=== PATIENT | male | born 1975 | race Caucasian/White ===

== ENCOUNTER 2016-09-24 08:44 | Emergency (ER) | payer MEDICARE, MEDICAID ==
[~2016-09-24] VITALS: Ht 180.3 cm; Wt 126.5 kg
[~2016-09-24 08:44] MED LIST: HYDR-3989 PO
[2016-09-24 08:45] VITALS: Ht 180.3 cm; Wt 126.5 kg
--- OUTSIDE RECORDS SUMMARY | 2016-09-24 08:48 | XMS REPORT ---
Author Author Albert Ferrer Organization [employer] Address Unknown Phone Unavailable Care Team Providers Care Straightening Machine Operator Name Role Phone Albert Ferrer CP Unavailable Allergies No Known Allergies Problems Problem Type Condition Code Onset Dates Condition Status Problem Migraine headaches 346.90 Active Problem Other specified idiopathic peripheral neuropathy 356.8 Active Problem Other anxiety states 300.09 Active Problem Vision impairment, both eyes, impairment level not further specified 369.20 Active Medications No Known Medications Results No Known Results Summary Purpose eClinicalWorks Submission
--- OUTSIDE RECORDS SUMMARY | 2016-09-24 08:49 | XMS REPORT ---
Author Author Gretchen Ruiz Organization [employer] Address Unknown Phone Unavailable Care Team Providers Care Fence Post Driver Name Role Phone Gretchen Ruiz CP Unavailable Allergies, Adverse Reactions, Alerts Substance Reaction Event Type N.K.D.A. Info Not Available Non Drug Allergy Problems Problem Type Condition ICD-9 Code Onset Dates Condition Status Assessment Screening for diabetes mellitus V77.1 Active Assessment Screening for lipoid disorders V77.91 Active Assessment Macular degeneration (senile) of retina, unspecified 362.50 Active Assessment Screening examination for venereal disease V74.5 Active Medications Medication Code System Code Instructions Start Date End Date Status Dosage Tylenol [facility] [address]-02 325 MG Orally every 6 hrs 1 tablet as needed Procedures Procedure Coding System Code Date OFFICE VISIT, OIL DISTRIBUTOR TENDER-LOW COMPLEXITY (20 MIN.) CPT-4 19420 December 16, 2014 Vital Signs Date/Time: December 16, 2014 Height 68.5 in Weight 277.8 lbs Temperature 98.4 F Blood Pressure Diastolic 84 mm Hg Blood Pressure Systolic 118 mm Hg Cardiac Monitoring Heart Rate 78 /min BMI 41.62 Index Respiratory Rate 16 /min Results No Known Results Summary Purpose eClinicalWorks Submission
--- OUTSIDE RECORDS SUMMARY | 2016-09-24 08:49 | XMS REPORT ---
Author Author Albert Ferrer Organization [employer] Address Unknown Phone Unavailable Care Team Providers Care Certified Teacher Assistant Name Role Phone Albert Ferrer CP Unavailable Allergies No Known Allergies Problems Problem Type Condition ICD-9 Code Onset Dates Condition Status Problem Other specified idiopathic peripheral neuropathy 356.8 Active Problem Vision impairment, both eyes, impairment level not further specified 369.20 Active Problem Migraine headaches 346.90 Active Medications Medication Code System Code Instructions Start Date End Date Status Dosage Folic Acid [facility] [address]-80 1 MG Orally Once a day January 12, 2015 Jul 11, 2015 1 tablet Results No Known Results Summary Purpose eClinicalWorks Submission
--- OUTSIDE RECORDS SUMMARY | 2016-09-24 08:49 | XMS REPORT ---
Author Author Albert Ferrer Organization [employer] Address Unknown Phone Unavailable Care Team Providers Care Scale Installer Name Role Phone Albert Ferrer CP Unavailable Allergies No Known Allergies Problems Problem Type Condition ICD-9 Code Onset Dates Condition Status Problem Migraine headaches 346.90 Active Problem Other specified idiopathic peripheral neuropathy 356.8 Active Problem Other anxiety states 300.09 Active Problem Vision impairment, both eyes, impairment level not further specified 369.20 Active Medications Medication Code System Code Instructions Start Date End Date Status Dosage [facility] [address]-84 5-325 MG Orally every 6 hrs. take no other tylenol products or pain meds while on this. January 09, 2015 Apr 10, 2015 1 tablet as needed for pain Results No Known Results Summary Purpose eClinicalWorks Submission
--- OUTSIDE RECORDS SUMMARY | 2016-09-24 08:49 | XMS REPORT ---
Author Author Albert Ferrer Organization [employer] Address Unknown Phone Unavailable Care Team Providers Care Field Ironworker Name Role Phone Albert Ferrer CP Unavailable Allergies, Adverse Reactions, Alerts Substance Reaction Event Type N.K.D.A. Info Not Available Non Drug Allergy Problems Problem Type Condition Code Onset Dates Condition Status Assessment Adjustment disorder with depressed mood F43.21 Active Problem Other specified idiopathic peripheral neuropathy 356.8 Active Problem Vision impairment, both eyes, impairment level not further specified 369.20 Active Assessment Migraine, unspecified, not intractable, without status migrainosus G43.909 Active Assessment Abnormal weight loss R63.4 Active Problem Nicotine dependence, unspecified, uncomplicated F17.200 Active Problem Low vision, both eyes H54.2 Active Problem Migraine, unspecified, not intractable, without status migrainosus G43.909 Active Problem Other anxiety states 300.09 Active Problem Migraine headaches 346.90 Active Problem Hyperlipidemia, unspecified E78.5 Active Problem Mental disorder, not otherwise specified F99 Active Medications Medication Code System Code Instructions Start Date End Date Status Dosage Folic Acid [facility] [address]-53 1 MG Orally Once a day October 08, 2015Jul 1 tablet Multivitamins [facility] [address] 1 Orally daily January 09, 2015 one [place] [facility] [address]-04 5-325 MG Orally every 6 hrs(October fill 03/14/16) Apr 13, 2016 1 tablet as needed Procedures Procedure Coding System Code Date OFFICE VISIT, EST-LOW COMPLEXITY (15 MIN.) CPT-4 38572 Mar 29, 2016 [facility] visit Established Patient CPT-4 G0467 Mar 29, 2016 Vital Signs Date/Time: Mar 29, 2016 Temperature 98.0 F Height 68.5 in Weight 265.0 lbs Blood Pressure Diastolic 86 mm Hg Blood Pressure Systolic 128 mm Hg Cardiac Monitoring Heart Rate 73 /min BMI 39.70 Index Oximetry 95 % Respiratory Rate 16 /min Results No Known Results Summary Purpose eClinicalWorks Submission
--- OUTSIDE RECORDS SUMMARY | 2016-09-24 08:49 | XMS REPORT ---
Author Author Albert Ferrer Organization [employer] Address Unknown Phone Unavailable Care Team Providers Care Government Employee Name Role Phone Albert Ferrer CP Unavailable Allergies No Known Allergies Problems Problem Type Condition Code Onset Dates Condition Status Problem Other specified idiopathic peripheral neuropathy 356.8 Active Problem Vision impairment, both eyes, impairment level not further specified 369.20 Active Problem Nicotine dependence, unspecified, uncomplicated F17.200 Active Problem Low vision, both eyes H54.2 Active Problem Migraine, unspecified, not intractable, without status migrainosus G43.909 Active Problem Other anxiety states 300.09 Active Problem Migraine headaches 346.90 Active Problem Hyperlipidemia, unspecified E78.5 Active Problem Mental disorder, not otherwise specified F99 Active Medications No Known Medications Results No Known Results Summary Purpose eClinicalWorks Submission
--- OUTSIDE RECORDS SUMMARY | 2016-09-24 08:49 | XMS REPORT ---
Author Author Albert Ferrer Organization [employer] Address Unknown Phone Unavailable Care Team Providers Care Pump And Still Operator Name Role Phone Albert Ferrer CP Unavailable Allergies No Known Allergies Problems Problem Type Condition ICD-9 Code Onset Dates Condition Status Problem Other specified idiopathic peripheral neuropathy 356.8 Active Problem Vision impairment, both eyes, impairment level not further specified 369.20 Active Problem Migraine headaches 346.90 Active Assessment Other optic neuritis 377.39 Active Medications No Known Medications Results No Known Results Summary Purpose eClinicalWorks Submission
--- OUTSIDE RECORDS SUMMARY | 2016-09-24 08:49 | XMS REPORT ---
Author Author Albert Ferrer Organization [employer] Address Unknown Phone Unavailable Care Team Providers Care Matlab Developer Name Role Phone Albert Ferrer CP Unavailable Allergies No Known Allergies Problems Problem Type Condition Code Onset Dates Condition Status Problem Other specified idiopathic peripheral neuropathy 356.8 Active Problem Other anxiety states 300.09 Active Problem Migraine headaches 346.90 Active Problem Vision impairment, both eyes, impairment level not further specified 369.20 Active Problem Allergic rhinitis, unspecified J30.9 Active Problem Migraine, unspecified, not intractable, without status migrainosus G43.909 Active Problem Elevated white blood cell count, unspecified D72.829 Active Problem Hyperlipidemia, unspecified E78.5 Active Problem Mental disorder, not otherwise specified F99 Active Problem Nicotine dependence, unspecified, uncomplicated F17.200 Active Problem Low vision, both eyes H54.2 Active Medications Medication Code System Code Instructions Start Date End Date Status Dosage Flonase [facility] [address]-20 50 MCG/ACT Nasally Once a day May 23, 2016 1 -2 sprays in each nostril Folic Acid [facility] [address]-17 1 MG Orally Once a day Apr 01, 2016September 1 tablet Colace [facility] [address]-84 100 MG Orally as directed May 20, 2016 1 capsule as needed every 12hrs for constipation Amoxicillin [facility] [address]-52 875 MG Orally Twice a day May 20, 2016 1 tablet [place] [facility] [address]-16 5-325 MG Orally every 6 hrs Jun 15, 2016 1 tablet as needed Multivitamins [facility] [address]107 1 Orally daily January 09, 2015 one Zyrtec Allergy [facility] [address]-30 10 MG Orally Once a day May 20, 2016 1 tablet Results No Known Results Summary Purpose eClinicalWorks Submission
--- OUTSIDE RECORDS SUMMARY | 2016-09-24 08:49 | XMS REPORT ---
Author Author Albert Ferrer Organization [employer] Address Unknown Phone Unavailable Care Team Providers Care Segmental Paving Supervisor Name Role Phone Albert Ferrer CP Unavailable [...] Instructions Start Date End Date Status Dosage [facility] [address]-66 5-325 MG Orally every 6 hrs May 14, 2016 1 tablet as needed Results No Known Results Summary Purpose eClinicalWorks Submission
--- OUTSIDE RECORDS SUMMARY | 2016-09-24 08:49 | XMS REPORT ---
Author Author Albert Ferrer Organization [employer] Address Unknown Phone Unavailable Care Team Providers Care Rib Bender Name Role Phone Albert Ferrer CP Unavailable Allergies No Known Allergies Problems Problem Type Condition ICD-9 Code Onset Dates Condition Status Problem Other specified idiopathic peripheral neuropathy 356.8 Active Problem Vision impairment, both eyes, impairment level not further specified 369.20 Active Problem Migraine headaches 346.90 Active Assessment Other optic neuritis 377.39 Active Medications Medication Code System Code Instructions Start Date End Date Status Dosage [facility] [address]-15 5-325 MG Orally every 6 hrs. take no other tylenol products or pain meds while on this. October02-08-15. January 09, 2015Feb 1 tablet as needed for pain Results No Known Results Summary Purpose eClinicalWorks Submission
--- OUTSIDE RECORDS SUMMARY | 2016-09-24 08:49 | XMS REPORT ---
Author Author Albert Ferrer Organization [employer] Address Unknown Phone Unavailable Care Team Providers Care Central Lab Technician Name Role Phone Albert Ferrer CP Unavailable Allergies No Known Allergies Problems Problem Type Condition Code Onset Dates Condition Status Problem Migraine headaches 346.90 Active Problem Other specified idiopathic peripheral neuropathy 356.8 Active Problem Other anxiety states 300.09 Active Problem Vision impairment, both eyes, impairment level not further specified 369.20 Active Medications Medication Code System Code Instructions Start Date End Date Status Dosage [facility] [address]-79 5-325 MG Orally every 6 hrs, May fill 06-11-15. Jul 09, 2015 1 tablet as needed Results No Known Results Summary Purpose eClinicalWorks Submission
--- OUTSIDE RECORDS SUMMARY | 2016-09-24 08:49 | XMS REPORT ---
Author Author Albert Ferrer Organization [employer] Address Unknown Phone Unavailable Care Team Providers Care Purchaser Automotive Parts Name Role Phone Albert Ferrer CP Unavailable Allergies, Adverse Reactions, Alerts Substance Reaction Event Type N.K.D.A. 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 Active Problem Mental disorder, not otherwise specified F99 Active Problem Other anxiety states 300.09 Active Problem Hyperlipidemia, unspecified E78.5 Active Problem Vision impairment, both eyes, impairment level not further specified 369.20 Active Assessment Low vision, both eyes H54.2 Active Problem Migraine headaches 346.90 Active Problem Other specified idiopathic peripheral neuropathy 356.8 Active Medications Medication Code System Code Instructions Start Date End Date Status Dosage [place] [facility] [address]-49 5-325 MG Orally every 6 hrs(October fill 10/14/15) November 07, 2015 1 tablet as needed Folic Acid [facility] [address]-15 1 MG Orally Once a day October 08, 2015Mar 1 tablet Procedures Procedure Coding System Code Date OFFICE VISIT, EST-MOD. COMPLEXITY (25 MIN) CPT-4 10052 October 08, 2015 [facility] visit Established Patient CPT-4 G0467 October 08, 2015 Vital Signs Date/Time: October 08, 2015 Temperature 97.3 F Height 68.5 in Weight 287.8 lbs Blood Pressure Diastolic 82 mm Hg Blood Pressure Systolic 110 mm Hg Cardiac Monitoring Heart Rate 75 /min BMI 43.12 Index Oximetry 98 % Respiratory Rate 16 /min Results No Known Results Summary Purpose eClinicalWorks Submission
--- OUTSIDE RECORDS SUMMARY | 2016-09-24 08:49 | XMS REPORT ---
Author Author Albert Ferrer Organization [employer] Address Unknown Phone Unavailable Care Team Providers Care Manager Of Compensation Name Role Phone Albert Ferrer CP Unavailable Allergies, Adverse Reactions, Alerts Substance Reaction Event Type N.K.D.A. Info Not Available Non Drug Allergy Problems Problem Type Condition ICD-9 Code Onset Dates Condition Status Problem Migraine headaches 346.90 Active Problem Other specified idiopathic peripheral neuropathy 356.8 Active Problem Other anxiety states 300.09 Active Assessment Migraine headaches 346.90 Active Problem Vision impairment, both eyes, impairment level not further specified 369.20 Active Assessment Open wound of finger(s), without mention of complication 883.0 Active Medications Medication Code System Code Instructions Start Date End Date Status Dosage Folic Acid [facility] [address]-76 1 MG Orally Once a day January 12, 2015 Jul 11, 2015 1 tablet [place] [facility] [address]-33 5-325 MG Orally every 6 hrs. take no other tylenol products or pain meds while on this. May 02-08-15. January 09, 2015Feb 1 tablet as needed for pain Procedures Procedure Coding System Code Date ADMINISTRATION, 1ST IMMUNIZATION CPT-4 62762 Mar 04, 2015 [facility] visit Established Patient CPT-4 G0467 Mar 04, 2015 TDAP VACCINE >7 IM CPT-4 70789 Mar 04, 2015 OFFICE VISIT, EST-LOW COMPLEXITY (15 MIN.) CPT-4 45455 Mar 04, 2015 Vital Signs Date/Time: Mar 04, 2015 Height 68.5 in Weight 273.12 lbs Temperature 97.7 F Blood Pressure Diastolic 78 mm Hg Blood Pressure Systolic 114 mm Hg Cardiac Monitoring Heart Rate 90 /min BMI 40.92 Index Oximetry 98 % Respiratory Rate 16 /min Results No Known Results Immunizations Vaccine Administration Date TDaP Mar 04, 2015 Summary Purpose eClinicalWorks Submission
--- OUTSIDE RECORDS SUMMARY | 2016-09-24 08:49 | XMS REPORT ---
Author Author Albert Ferrer Organization [employer] Address Unknown Phone Unavailable Care Team Providers Care Electromatic Typist Name Role Phone Albert Ferrer CP Unavailable [...] Date End Date Status Dosage Folic Acid [facility] [address]-68 1 MG Orally Once a day January 12, 2015 Jul 11, [address] [facility] [address]-72 325 MG Orally every 6 hrs 1 tablet as needed [place] [facility] [address]-03 5-325 MG Orally every 6 hrs. take no other tylenol products or pain meds while on this. January 09, 2015 Feb 08, 2015 1 tablet as needed for pain Multivitamins [facility] [address] 1 Orally daily January 09, 2015 one Procedures Procedure Coding System Code Date SED RATE CPT-4 92199 January 12, 2015 IMMUNOELECTROPHORESIS, URINE CPT-4 83993 January 12, 2015 Results No Known Results Summary Purpose eClinicalWorks Submission
--- OUTSIDE RECORDS SUMMARY | 2016-09-24 08:49 | XMS REPORT ---
Author Author Albert Ferrer Organization [employer] Address Unknown Phone Unavailable Care Team Providers Care Client Success Director Name Role Phone Albert Ferrer CP Unavailable Allergies No Known Allergies Problems Problem Type Condition Code Onset Dates Condition Status Assessment Low vision, both eyes H54.2 Active Problem Other specified idiopathic peripheral neuropathy 356.8 Active Problem Vision impairment, both eyes, impairment level not further specified 369.20 Active Assessment Hyperlipidemia, unspecified E78.5 Active Assessment Migraine, unspecified, not intractable, without status migrainosus G43.909 Active Problem Nicotine dependence, unspecified, uncomplicated F17.200 [...] End Date Status Dosage Folic Acid [facility] [address]-63 1 MG Orally Once a day Apr 01, 2016September 1 tablet Multivitamins [facility] [address] 1 Orally daily January 09, 2015 one Folic Acid [facility] [address]-19 5 MG Orally Once a day Mar 29, 2016 Jun 27, 2016 1 capsule Procedures Procedure Coding System Code Date VITAMIN B12 CPT-4 34215 May 16, 2016 COMPLETE CBC W/AUTO DIFF WBC CPT-4 58916 May 16, 2016 FOLATE- VIT B12 AND FOLATE CPT-4 72229 May 16, 2016 URINALYSIS WITH MICROSCOPIC CPT-4 73661 May 16, 2016 COMPREHENSIVE METABOLIC PANEL CPT-4 85677 May 16, 2016 Results Name Result Date Reference Range Unit Abnormality Flag Vitamin B12 and Folate ----Vitamin B12 527 45828803 213-816 pg/mL ----Folate 7.3 74876972 7.0-31.4 ng/mL CBC With Platelet and Differential ----Absolute Monocytes 0.87 78448844 0.30-1.00 10*3 ----MCV 89.6 79558862 82.0-99.0 fL ----HCT 44.9 65998552 42.0-52.0 % ----Absolute Lymphocytes 3.73 91671052 0.80-3.30 10*3 H ----MCHC 33.9 73145393 32.0-36.0 g/dL ----Absolute Neutrophils 6.34 92921720 1.90-7.00 10*3 ----MCH 30.3 74348932 27.0-32.0 pg ----Immature Granulocytes 0.2 06337899 0.0-1.0 % ----Lymphocytes 33 95827365 20-46 % ----WBC 11.2 83345735 4.8-10.8 K/uL H ----Neutrophils 57 35393231 51-75 % ----Absolute Basophils 0.06 50713052 0.00-0.20 10*3 ----HGB 15.2 08967379 14.0-18.0 g/dL ----Absolute Eosinophils 0.14 09630039 0.00-0.50 10*3 ----RBC 5.01 99850235 4.60-6.20 10*6/uL ----Basophils 1 95134468 0-2 % ----Eosinophils 1 85385863 0-4 % ----Platelet Count 189 16642136 150-400 K/uL ----Monocytes 8 82395122 4-11 % ----RDW 12.8 92565935 11.5-14.5 % ----MPV 12.4 43462418 8.8-14.8 fL eGFR ----eGFR >60 09618222 >60 mL/min Non-HDL Cholesterol ----Non-HDL Cholesterol 142 68945178 0-159 mg/dL Urinalysis with Microscopic ----Protein Negative 77960247 Negative ----Blood Negative 06527273 Negative ----Ketones Negative 89767439 Negative ----Glucose, Urine Negative 69224050 Negative ----Specific Gerald 1.031 94685427 1.003-1.030 H ----Bilirubin Negative 47490216 Negative ----Nitrites Negative 12985609 Negative ----Leukocyte Esterase Negative 20160516 Negative ----RBC, Urine 0-4 86771027 0-4 /HPF ----WBC, Urine 0-2 20160516 0-4 /HPF ----Epithelial Cells 0-2 20160516 /HPF ----Color Yellow 20160516 ----Appearance Clear [id number] ----pH 6.0 21199059 5.0-8.0 ----Urobilinogen 0.2 79071639 <1.0 mg/dL ----Urine Mucus Present [id number] ----Microscop. Exam Perf. performed [id number] Comprehensive Metabolic Panel (CMP) ----CO2 28 20160516 23-31 mEq/L ----Chloride 107 78737194 99-111 mEq/L ----Potassium 4.4 02418875 3.5-5.2 mEq/L ----Sodium 142 43897290 135-144 mEq/L ----Calcium 8.7 80991351 8.9-10.5 mg/dL L ----Creatinine 1.00 36904934 0.72-1.25 mg/dL ----BUN 10 23554450 9-21 mg/dL ----Glucose 95 49044166 70-99 mg/dL ----AST (SGOT) 14 40740504 5-34 U/L ----Anion Gap 7 20160516 3-20 ----Globulin 2.1 97365743 1.8-4.0 g/dL ----Bilirubin Total 0.5 61196736 0.2-1.2 mg/dL ----Alkaline Phosphatase 65 82327971 40-150 U/L ----Protein 6.4 26364178 6.1-7.7 g/dL ----ALT (SGPT) 24 20160516 0-55 U/L ----Albumin 4.3 37032557 3.5-5.0 g/dL Lipid Panel ----HDL Cholesterol 36 58052883 40-84 mg/dL L ----Triglycerides 107 68406127 0-149 mg/dL ----VLDL Cholesterol 21 69225027 0-28 mg/dL ----LDL Cholesterol 121 54700158 0-130 mg/dL ----Cardiac Risk 4.9 64828276 0.0-5.7 ----Cholesterol 178 97900505 0-199 mg/dL Summary Purpose eClinicalWorks Submission
--- OUTSIDE RECORDS SUMMARY | 2016-09-24 08:49 | XMS REPORT ---
Author Author Albert Ferrer Organization e[employer] Address Unknown Phone Unavailable Care Team Providers Care Gauge Maker Name Role Phone Albert Ferrer CP Unavailable [...] Instructions Start Date End Date Status Dosage [facility] [address]-08 5-325 MG Orally every 6 hrs(May fill 02/12/16) Mar 12, 2016 1 tablet as needed Results No Known Results Summary Purpose eClinicalWorks Submission
--- OUTSIDE RECORDS SUMMARY | 2016-09-24 08:49 | XMS REPORT ---
Author Author Albert Ferrer Organization [employer] Address Unknown Phone Unavailable Care Team Providers Care Typewriter Aligner Name Role Phone Albert Ferrer CP Unavailable [...] Date End Date Status Dosage [facility] [address]-47 5-325 MG Orally every 6 hrs. take no other tylenol products or pain meds while on this. January 09, 2015 Apr 10, 2015 1 tablet as needed for pain Results No Known Results Summary Purpose eClinicalWorks Submission
--- OUTSIDE RECORDS SUMMARY | 2016-09-24 08:49 | XMS REPORT ---
Author Author Albert Ferrer Organization [employer] Address Unknown Phone Unavailable Care Team Providers Care Nursery Laborer Name Role Phone Albert Ferrer CP Unavailable [...] Instructions Start Date End Date Status Dosage [facility] [address]-96 5-325 MG Orally every 6 hrs Jun 15, 2016 1 tablet as needed Results No Known Results Summary Purpose eClinicalWorks Submission
--- OUTSIDE RECORDS SUMMARY | 2016-09-24 08:49 | XMS REPORT ---
Author Author Albert Ferrer Organization [employer] Address Unknown Phone Unavailable Care Team Providers Care Insulator Helper Name Role Phone Albert Ferrer CP Unavailable [...] Low vision, both eyes H54.2 Active Medications No Known Medications Results No Known Results Summary Purpose eClinicalWorks Submission
--- OUTSIDE RECORDS SUMMARY | 2016-09-24 08:49 | XMS REPORT ---
Author Author Albert Ferrer Organization eClinicalWorks Address Unknown Phone Unavailable Care Team Providers Care Medicaid Analyst Name Role Phone Albert Ferrer CP Unavailable Allergies, Adverse Reactions, Alerts Substance Reaction Event Type N.K.D.A. Info Not Available Non Drug Allergy Problems Problem Type Condition Code Onset Dates Condition Status Assessment Elevated white blood cell count, unspecified D72.829 Active Assessment Deficiency of other specified B group vitamins E53.8 Active Problem Migraine headaches 346.90 Active Problem Other specified idiopathic peripheral neuropathy 356.8 Active Problem Other anxiety states 300.09 Active Assessment Other optic neuritis H46.8 Active Assessment Impacted cerumen, bilateral H61.23 Active Problem Vision impairment, both eyes, impairment level not further specified 369.20 Active Assessment Headache R51 Active Medications Medication Code System Code Instructions Start Date End Date Status Dosage [place] [facility] [address]-79 5-325 MG Orally every 6 hrs 1 tablet as needed Folic Acid [facility] [address]-40 1 MG Orally Once a day January 12, 2015 Jul 11, 2015 1 tablet Procedures Procedure Coding System Code Date OFFICE VISIT, EST-MOD. COMPLEXITY (25 MIN) CPT-4 36346 May 19, 2015 [facility] visit Established Patient CPT-4 G0467 May 19, 2015 Vital Signs Date/Time: May 19, 2015 Height 68.5 in Weight 273.8 lbs Temperature 98.0 F Blood Pressure Diastolic 80 mm Hg Blood Pressure Systolic 120 mm Hg Cardiac Monitoring Heart Rate 88 /min BMI 41.02 Index Oximetry 98 % Respiratory Rate 16 /min Results No Known Results Summary Purpose eClinicalWorks Submission
--- OUTSIDE RECORDS SUMMARY | 2016-09-24 08:50 | XMS REPORT ---
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 Active Assessment Folate deficiency anemia, unspecified D52.9 Active Assessment Nicotine dependence, unspecified, uncomplicated F17.200 Active Assessment Hyperlipidemia, unspecified E78.5 Active Assessment Elevated white blood cell count, unspecified D72.829 Active Assessment Migraine, unspecified, not intractable, without status migrainosus G43.909 Active Medications Medication Code System Code Instructions Start Date End Date Status Dosage Multivitamins [facility] [address] 1 Orally daily January 09, 2015 one [place] [facility] [address]-32 5-325 MG Orally every 6 hrs(May fill 01/13/16) Feb 10, 2016 1 tablet as needed Folic Acid [facility] [address]-82 1 MG Orally Once a day October 08, 2015Jul 1 tablet Procedures Procedure Coding System Code Date OFFICE VISIT, EST-LOW COMPLEXITY (15 MIN.) CPT-4 30846 Jan 28, 2016 [facility] visit Established Patient CPT-4 G0467 Jan 28, 2016 Vital Signs Date/Time: Jan 28, 2016 Temperature 98.2 F Height 68.5 in Weight 259.4 lbs Blood Pressure Diastolic 72 mm Hg Blood Pressure Systolic 132 mm Hg Cardiac Monitoring Heart Rate 78 /min BMI 38.86 Index Oximetry 93 % Results No Known Results Summary Purpose eClinicalWorks Submission
--- OUTSIDE RECORDS SUMMARY | 2016-09-24 08:50 | XMS REPORT ---
Author Author Albert Ferrer Organization e[employer] Address Unknown Phone Unavailable Care Team Providers Care Rail Director Name Role Phone Albert Ferrer CP [...] Date End Date Status Dosage Folic Acid [facility] [address]-50 5 MG Orally Once a day Mar 29, 2016 Jun 27, 2016 1 capsule Results No Known Results Summary Purpose eClinicalWorks Submission
--- OUTSIDE RECORDS SUMMARY | 2016-09-24 08:50 | XMS REPORT ---
Author Author Albert Ferrer Organization eClinicalWorks Address Unknown Phone Unavailable Care Team Providers Care Privacy Analyst Name Role Phone Albert Ferrer CP [...] Instructions Start Date End Date Status Dosage [place] [facility] [address]-80 5-325 MG Orally every 6 hrs (may fill 09/14/2015) October 10, 2015 1 tablet as needed Procedures Procedure Coding System Code Date VITAMIN B12 CPT-4 02310 October 06, 2015 COMPLETE CBC W/AUTO DIFF WBC CPT-4 64786 October 06, 2015 FOLATE- VIT B12 AND FOLATE CPT-4 66082 October 06, 2015 TSH CPT-4 41369 October 06, 2015 C-REACTIVE PROTEIN CPT-4 40079 October 06, 2015 IH LIPID PANEL CPT-4 91992 October 06, 2015 IH CMP CPT-4 24377 October 06, 2015 Results Name Result Date Reference Range Unit Abnormality Flag Vitamin B12 and Folate ----Vitamin B12 622 [id number] 213-816 pg/mL ----Folate 4.3 67856138 7.0-31.4 ng/mL L C-Reactive Protein ----C-Reactive Protein 1.0 15522884 <0.5 mg/dL H CBC With Platelet and Differential ----Absolute Eosinophils 0.12 01012051 0.00-0.50 10*3 ----Absolute Monocytes 0.91 98124797 0.30-1.00 10*3 ----Neutrophils 62 89260708 51-75 % ----Absolute Basophils 0.05 41631745 0.00-0.20 10*3 ----MPV 13.0 14618457 8.8-14.8 fL ----Monocytes 8 38809362 4-11 % ----RDW 13.7 16550539 11.5-14.5 % ----Lymphocytes 29 30791107 20-46 % ----MCHC 33.7 96925200 32.0-36.0 g/dL ----MCH 30.8 80808612 27.0-32.0 pg ----MCV 91.4 03212030 82.0-99.0 fL ----Immature Granulocytes 0.2 51082374 0.0-1.0 % ----Platelet Count 193 [id number] 150-400 K/uL ----Absolute Lymphocytes 3.48 52171685 0.80-3.30 10*3 H ----Absolute Neutrophils 7.62 60008671 1.90-7.00 10*3 H ----Eosinophils 1 80932364 0-4 % ----Basophils 0 23465255 0-2 % ----WBC 12.2 64253603 4.8-10.8 K/uL H ----RBC 5.13 46212067 4.60-6.20 10*6/uL ----HGB 15.8 75631686 14.0-18.0 g/dL ----HCT 46.9 68244145 42.0-52.0 % TSH ----TSH 1.40 24900191 0.35-4.94 uIU/mL In [place] Lipid Panel ----VLDL 25 20151006 ----LDL 96 20151006 ----Chol/HDL Ratio 4.8 20151006 ----[facility] 121 20151006 ----Triglycerides 127 20151006 ----HDL 32 20151006 ----Cholesterol 154 67752544 In House CMP ----CO2 29 20151006 18 - 33 mmol/L ----Potassium 3.9 54229616 3.6 - 5.1 mmol/L ----Glucose 94 91417145 73 - 118 mg/DL ----Chloride 101 74553771 98 - 108 mmol/L ----BUN 9 85111907 7 - 22 mg/DL ----Calcium 8.8 08734150 8.0 - 10.3 mg/DL ----Alkaline Phosphatase 68 20151006 53 - 128 u/L ----Creatinine 1.2 22522295 0.6 - 1.2 mg/DL ----ALT 32 20151006 10 - 47 u/L ----Total Bilirubin 0.9 24345208 0.2 - 1.6 mg/DL ----AST 21 20151006 11 - 38 u/L ----EGFR >60 20151006 ----Albumin 3.9 20151006 3.3 - 5.5 g/DL ----Sodium 140 20151006 128 - 145 mmol/L ----Total Protein 7.2 20151006 6.4 - 8.1 G/DL Summary Purpose eClinicalWorks Submission
--- OUTSIDE RECORDS SUMMARY | 2016-09-24 08:50 | XMS REPORT ---
Author Author Albert Ferrer Organization eClinicalWorks Address Unknown Phone Unavailable Care Team Providers Care Legal Instructor Name Role Phone Albert Ferrer CP Unavailable [...]
--- OUTSIDE RECORDS SUMMARY | 2016-09-24 08:50 | XMS REPORT ---
Author Author Albert Ferrer Organization e[employer] Address Unknown Phone Unavailable Care Team Providers Care Pot Filler Name Role Phone Albert Ferrer CP Unavailable Allergies, Adverse Reactions, Alerts Substance Reaction Event Type N.K.D.A. Info Not Available Non Drug Allergy Problems Problem Type Condition ICD-9 Code Onset Dates Condition Status Problem Migraine headaches 346.90 Active Problem Other specified idiopathic peripheral neuropathy 356.8 Active Problem Other anxiety states 300.09 Active Assessment Other optic neuritis 377.39 Active Assessment Migraine headaches 346.90 Active Problem Vision impairment, both eyes, impairment level not further specified 369.20 Active Assessment Other anxiety states 300.09 Active Medications Medication Code System Code Instructions Start Date End Date Status Dosage Folic Acid [facility] [address]-41 1 MG Orally Once a day January 12, 2015 Jul 11, 2015 1 tablet [place] [facility] [address]-23 5-325 MG Orally every 6 hrs. take no other tylenol products or pain meds while on this. May 02-08-15. January 09, 2015Feb 1 tablet as needed for pain Procedures Procedure Coding System Code Date OFFICE VISIT, EST-LOW COMPLEXITY (15 MIN.) CPT-4 23771 Feb 18, 2015 [facility] visit Established Patient CPT-4 G0467 Feb 18, 2015 Vital Signs Date/Time: Feb 18, 2015 Height 68.5 in Weight 271.12 lbs Temperature 97.8 F Blood Pressure Diastolic 76 mm Hg Blood Pressure Systolic 110 mm Hg Cardiac Monitoring Heart Rate 89 /min BMI 40.62 Index Oximetry 98 % Respiratory Rate 18 /min Results No Known Results Summary Purpose eClinicalWorks Submission
--- OUTSIDE RECORDS SUMMARY | 2016-09-24 08:50 | XMS REPORT ---
Author Author Albert Ferrer Organization eClinicalWorks Address Unknown Phone Unavailable Care Team Providers Care Greige Goods Marker Name Role Phone Albert Ferrer CP Unavailable Allergies, Adverse Reactions, Alerts Substance Reaction Event Type N.K.D.A. 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 Active Problem Nicotine dependence, unspecified, uncomplicated F17.200 Active Problem Low vision, both eyes H54.2 Active Assessment Other specified disorders of Eustachian tube, unspecified ear H69.80 Active Assessment Allergic rhinitis, unspecified J30.9 Active Assessment Impacted cerumen, unspecified ear H61.20 Active Assessment Elevated white blood cell count, unspecified D72.829 Active Assessment Otitis media, unspecified, unspecified ear H66.90 Active Assessment Hyperlipidemia, unspecified E78.5 Active Assessment Otalgia, right ear H92.01 Active Problem Vision impairment, both eyes, impairment level not further specified 369.20 Active Medications Medication Code System Code Instructions Start Date End Date Status Dosage [place] [facility] [address]-35 5-325 MG Orally every 6 hrs Jun 15, 2016 1 tablet as needed Colace [facility] [address]-47 100 MG Orally as directed May 20, 2016 1 capsule as needed every 12hrs for constipation Amoxicillin [facility] [address]-82 875 MG Orally Twice a day May 20, 2016 1 tablet Folic Acid [facility] [address]-92 1 MG Orally Once a day Apr 01, 2016September 1 tablet Nasonex [facility] [address]-46 50 MCG/ACT Nasally Once a day May 20, 2016 2 sprays in each nostril Zyrtec Allergy [facility] [address]-00 10 MG Orally Once a day May 20, 2016 1 tablet Multivitamins [facility] [address] 1 Orally daily January 09, 2015 one Procedures Procedure Coding System Code Date OFFICE VISIT, EST-LOW COMPLEXITY (15 MIN.) CPT-4 74768 May 20, 2016 [facility] visit Established Patient CPT-4 G0467 May 20, 2016 Vital Signs Date/Time: May 20, 2016 Temperature 98.0 F Height 68.5 in Weight 276.0 lbs Blood Pressure Diastolic 82 mm Hg Blood Pressure Systolic 128 mm Hg Cardiac Monitoring Heart Rate 67 /min BMI 41.35 Index Oximetry 98 % Respiratory Rate 16 /min Results No Known Results Summary Purpose eClinicalWorks Submission
--- OUTSIDE RECORDS SUMMARY | 2016-09-24 08:50 | XMS REPORT ---
Author Author Albert Ferrer Organization eClinicalWorks Address Unknown Phone Unavailable Care Team Providers Care Merry Go Round Attendant Name Role Phone Albert Ferrer CP Unavailable [...]
--- OUTSIDE RECORDS SUMMARY | 2016-09-24 08:50 | XMS REPORT | Continuity of Care Document ---
Author Author [facility] Organization [facility] Address Unknown Phone Unavailable Care Team Providers Care Roasterman Name Role Phone ACACIA CONTE MD Primary Care Physician [phone] Insurance Providers Payer Name Policy Number Subscriber Name Relationship Medicare [id number] Susy Jenkins 20 Self [place] [facility] Plan [id number] Susy Jenkins 20 Self Problems Medical Problems Problem Onset Date Status Viral gastroenteritis Unknown Active Abdominal pain Unknown Active Pharyngitis Unknown Active Pharyngitis Unknown Active Dog bite Unknown Active Dog bite Unknown Active Medications Medication Dose Route Sig Days/Qty Instructions Order Date Discontinued Date Status Amoxicillin/Potassium Clav 875 Mg PO TWICE A DAY 14 Qty 04/22/14 Active Social History Social History Problem Response Recorded Date/Time Smoking Status Heavy Smoker 10/27/2013 7:25am When did patient START smoking? AGE 14 04/22/2014 12:30pm Hx Substance Use Y MARIJUANA LAST ONE MO AGO 04/22/2014 12:30pm Hx Alcohol Use No 04/22/2014 12:30pm Query Response Start Date Stop Date Smoking Status Current every day smoker Hospital Discharge Instructions No hospital discharge instructions. Plan of Care No plan of care. Functional Status Query Response Date Recorded Physical Hygiene Self April 22, 2014 12:30pm Disabilities None April 22, 2014 12:30pm Devices Used None April 22, 2014 12:30pm Dressing Self April 22, 2014 12:30pm Ambulation Self April 22, 2014 12:30pm Diet Self April 22, 2014 12:30pm Mental Status Alert April 22, 2014 12:30pm Disabilities None April 22, 2014 12:30pm Devices Used None April 22, 2014 12:30pm Physical Hygiene Self April 22, 2014 12:30pm Dressing Self April 22, 2014 12:30pm Ambulation Self April 22, 2014 12:30pm Diet Self April 22, 2014 12:30pm Allergies, Adverse Reactions, Alerts Allergen Type Severity Reaction Status Last Updated No Known Allergies Active 04/22/14 Immunizations Name Given Type Hx Tetanus, Diptheria, Pertussis Y 2012 Historical Hx Tetanus Diptheria Y 2011 Historical Hx Tetanus, Diptheria, Pertussis Y 2011 Historical Vital Signs Acute Vital Signs Vital Response Date/Time Temperature (Fahrenheit) 97.9 deg F (96.8 - 99.1) Temperature (Calculated Celsius) 36.36937 degrees C (36.0 - 37.3) Pulse Rate (adult) 83 bpm (60 - 100) Respiratory Rate 16 breaths/min (10 - 20) O2 Sat by Pulse Oximetry 96 % (90 - 100) Blood Pressure 122/92 mm Hg Height 5 ft 11 in Weight 292 lb Body Mass Index 40.0 kg/m^2 Results Test Source Date Result Interp. Ref. Range Comments Alanine Aminotransferase (ALT/SGPT) September 18, 2013 10:05pm 46 U/L N 21- 72 Albumin September 18, 2013 10:05pm 4.3 G/DL N 3.5-5.0 Albumin/Globulin Ratio September 18, 2013 10:05pm 1.5 RATIO N 1.1-2.2 Alkaline Phosphatase September 18, 2013 10:05pm 92 U/L N 38-126 Anion Gap September 18, 2013 10:05pm 10 MEQ/L N 5-15 Aspartate Amino Transf (AST/SGOT) September 18, 2013 10:05pm 24 U/L N 17-59 BUN/Creatinine Ratio September 18, 2013 10:05pm 8 RATIO N 6-26 Basophils # (Auto) September 18, 2013 10:05pm 0.1 T/MM3 N 0-0.2 Basophils (%) (Auto) September 18, 2013 10:05pm 0.7 % N 0-2 Blood Urea Nitrogen September 18, 2013 10:05pm 8.0 MG/DL L 9-20 Calcium Level September 18, 2013 10:05pm 9.1 MG/DL N 8.4-10.2 Calculated Osmolality September 18, 2013 10:05pm 275 MOSM/KG N 261-280 Carbon Dioxide Level September 18, 2013 10:05pm 31 MEQ/L H 22-30 Chloride Level September 18, 2013 10:05pm 103 MEQ/L N 98-107 Creatinine September 18, 2013 10:05pm 1.0 MG/DL N 0.8-1.5 Eosinophils # (Auto) September 18, 2013 10:05pm 0.2 T/MM3 N 0-0.5 Eosinophils (%) (Auto) September 18, 2013 10:05pm 1.8 % N 0-4 Globulin September 18, 2013 10:05pm 2.8 G/DL N 2.4-3.6 Glucose Level September 18, 2013 10:05pm 93 MG/DL N 75-110 Hematocrit September 18, 2013 10:05pm 46.7 % N 41-53 Hemoglobin September 18, 2013 10:05pm 15.9 GM/DL N 13.5-17.5 Lipase September 18, 2013 10:05pm 133 U/L N 23-300 Lymphocytes # (Auto) September 18, 2013 10:05pm 3.1 T/MM3 N 1-4.8 Lymphocytes (%) (Auto) September 18, 2013 10:05pm 30.0 % N 23-45 Mean Corpuscular Hemoglobin September 18, 2013 10:05pm 30.5 UUG N 26-34 Mean Corpuscular Hemoglobin Concent September 18, 2013 10:05pm 34.0 GM/DL N 31-37 Mean Corpuscular Volume September 18, 2013 10:05pm 89.6 UM3 N 80-100 Mean Platelet Volume September 18, 2013 10:05pm 12.0 UM3 N 9.4-12.4 Monocytes # (Auto) September 18, 2013 10:05pm 0.9 T/MM3 H 0-0.8 Monocytes (%) (Auto) September 18, 2013 10:05pm 8.2 % N 0-9.0 Neutrophils # (Auto) September 18, 2013 10:05pm 6.1 T/MM3 N 1.8-7.7 Neutrophils (%) (Auto) September 18, 2013 10:05pm 59.1 % N 33-66 Platelet Count September 18, 2013 10:05pm 209 T/MM3 N 130-400 Potassium Level September 18, 2013 10:05pm 4.1 MEQ/L N 3.6-5 RDW Standard Deviation September 18, 2013 10:05pm 42.2 FL N 36.9-50.2 Red Blood Count September 18, 2013 10:05pm 5.21 M/MM3 N 4.50-5.90 Sodium Level September 18, 2013 10:05pm 144 MEQ/L N 134-144 Total Bilirubin September 18, 2013 10:05pm 0.40 MG/DL N 0.20-1.30 Total Protein September 18, 2013 10:05pm 7.1 G/DL N 6.3-8.2 Urine Bilirubin September 18, 2013 10:15pm Negative - Has specimen been collected/obtained? Y Urine Blood September 18, 2013 10:15pm Negative - Has specimen been collected/obtained? Y Urine Collection Type September 18, 2013 10:15pm Cleancatch-midstream - Has specimen been collected/obtained? Y Urine Color September 18, 2013 10:15pm Yellow - Has specimen been collected/obtained? Y Urine Glucose (UA) September 18, 2013 10:15pm Negative - Has specimen been collected/obtained? Y Urine Ketones September 18, 2013 10:15pm Negative - Has specimen been collected/obtained? Y Urine Leukocyte Esterase September 18, 2013 10:15pm Negative - Has specimen been collected/obtained? Y Urine Nitrite September 18, 2013 10:15pm Negative - Has specimen been collected/obtained? Y Urine Protein September 18, 2013 10:15pm Negative - Has specimen been collected/obtained? Y Urine Specific [place] September 18, 2013 10:15pm 1.015 - Has specimen been collected/obtained? Y Urine Turbidity September 18, 2013 10:15pm Clear - Has specimen been collected/obtained? Y Urine Urobilinogen September 18, 2013 10:15pm 0.2 EU/DL - Has specimen been collected/obtained? Y Urine pH September 18, 2013 10:15pm 7.0 - Has specimen been collected/ obtained? Y White Blood Count September 18, 2013 10:05pm 10.4 T/MM3 N 4.5-11.0 Chemistry Specimen Hemolysis September 18, 2013 10:05pm 17 N 0-25 0-25: No Hemolysis.26-70: Slight Hemolysis - can falsely elevate K and Urine Protein. 71-285: Moderate Hemolysis - can falsely elevate K, Troponin I, CA 19-9, PTH, CSF GLucose, and Urine Protein, and can falsely decrease Phenytoin. 286-999: Gross Hemolysis - can falsely elevate K, Troponin I, CA 19-9, PTH, CSF Glucose, and Urine Protine, and can falsely decrease Phenytoin. Recommend specimen recollection. Urinalysis Comment September 18, 2013 10:15pm Microscopic not ind. - Has specimen been collected/obtained? Y Turbidity September 18, 2013 10:05pm < 20 0-20 Glomerular Filtration Rate Calc September 18, 2013 10:05pm 85 - Immature Granulocyte # (Auto) September 18, 2013 10:05pm 0.02 T/MM3 N 0.00- 0.03 Immature Granulocyte % (Auto) September 18, 2013 10:05pm 0.2 % N 0.0-0.5 Icterus Index September 18, 2013 10:05pm < 2 0-7 Procedures No known history of procedures. Encounters Encounter Location Date/Time Registered Emergency Room [facility] 04/22/14 12:23pm Recent Diagnosis
--- OUTSIDE RECORDS SUMMARY | 2016-09-24 08:50 | XMS REPORT ---
Author Author Gretchen Ruiz [facility] eClinicalWorks Address Unknown Phone Unavailable Care Team Providers Care Cook Candy Name Role Phone Gretchen Ruiz CP Unavailable Allergies No Known Allergies Problems Problem Type Condition ICD-9 Code Onset Dates Condition Status Assessment Screening examination for venereal disease V74.5 Active Assessment Screening for diabetes mellitus V77.1 Active Medications Medication Code System Code Instructions Start Date End Date Status Dosage Tylenol [facility] [address]-90 325 MG Orally every 6 hrs 1 tablet as needed Procedures Procedure Coding System Code Date IH CMP CPT-4 32287 December 24, 2014 IH LIPID PANEL CPT-4 64349 December 24, 2014 URINALYSIS, IN HOUSE CPT-4 18734 December 24, 2014 Results No Known Results Summary Purpose eClinicalWorks Submission
--- OUTSIDE RECORDS SUMMARY | 2016-09-24 08:50 | XMS REPORT ---
Author Author Albert Ferrer Organization eClinicalWorks Address Unknown Phone Unavailable Care Team Providers Care Table Machine Operator Name Role Phone Albert Ferrer [...] Date End Date Status Dosage Folic Acid [facility] [address]-76 1 MG Orally Once a day Apr 01, 2016September 1 tablet Results No Known Results Summary Purpose eClinicalWorks Submission
--- OUTSIDE RECORDS SUMMARY | 2016-09-24 08:50 | XMS REPORT ---
Author Author Gretchen Ruiz Organization eClinicalWorks Address Unknown Phone Unavailable Care Team Providers Care Cap Lining Machine Operator Name Role Phone Gretchen Ruiz CP Unavailable Allergies No Known Allergies Problems Problem Type Condition ICD-9 Code Onset Dates Condition Status Assessment Screening examination for venereal disease V74.5 Active Assessment Macular degeneration (senile) of retina, unspecified 362.50 Active Medications Medication Code System Code Instructions Start Date End Date Status Dosage Tylenol [facility][NOTE 3] [address]-94 325 MG Orally every 6 hrs 1 tablet as needed Procedures Procedure Coding System Code Date COMPLETE CBC W/AUTO DIFF WBC CPT-4 18761 December 24, 2014 HIV-1/HIV-2, SINGLE ASSAY CPT-4 96806 December 24, 2014 SYPHILIS AB IGG CPT-4 98516 December 24, 2014 Results No Known Results Summary Purpose eClinicalWorks Submission
--- OUTSIDE RECORDS SUMMARY | 2016-09-24 08:50 | XMS REPORT ---
Author Author Albert Ferrer Organization e[employer]Works Address Unknown Phone Unavailable Care Team Providers Care Paint Laboratory Technician Name Role Phone Albert Ferrer CP Unavailable Allergies No Known Allergies Problems Problem Type Condition ICD-9 Code Onset Dates Condition Status Problem Other specified idiopathic peripheral neuropathy 356.8 Active Problem Vision impairment, both eyes, impairment level not further specified 369.20 Active Problem Migraine headaches 346.90 Active Medications Medication Code System Code Instructions Start Date End Date Status Dosage Folic Acid [facility] [address]-48 1 MG Orally Once a day January 12, 2015 Jul 11, 2015 1 tablet Results No Known Results Summary Purpose eClinicalWorks Submission
--- OUTSIDE RECORDS SUMMARY | 2016-09-24 08:50 | XMS REPORT ---
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
--- OUTSIDE RECORDS SUMMARY | 2016-09-24 08:50 | XMS REPORT ---
Author Author Albert Ferrer Organization eClinicalWorks Address Unknown Phone Unavailable Care Team Providers Care Liner Assembler Name Role Phone Albert Ferrer CP Unavailable [...]
--- OUTSIDE RECORDS SUMMARY | 2016-09-24 08:50 | XMS REPORT ---
Author Author Gretchen Ruiz Organization [employer] Address Unknown Phone Unavailable Care Team Providers Care Eco Industrial Development Consultant Name Role Phone Gretchen Ruiz CP Unavailable Allergies, Adverse Reactions, Alerts Substance Reaction Event Type N.K.D.A. Info Not Available Non Drug Allergy Problems Problem Type Condition Code Onset Dates Condition Status Assessment Headache 784.0 Active Medications Medication Code System Code Instructions Start Date End Date Status Dosage Tylenol [facility] [address]-30 325 MG Orally every 6 hrs 1 tablet as needed Procedures Procedure Coding System Code Date OFFICE VISIT, EST-LOW COMPLEXITY (15 MIN.) CPT-4 17342 December 31, 2014 [facility] visit Established Patient CPT-4 G0467 December 31, 2014 Vital Signs Date/Time: December 31, 2014 Height 68.5 in Weight 271.8 lbs Temperature 98.8 F Blood Pressure Diastolic 62 mm Hg Blood Pressure Systolic 120 mm Hg Cardiac Monitoring Heart Rate 92 /min BMI 40.72 Index Respiratory Rate 16 /min Results No Known Results Summary Purpose [employer]Works Submission
--- OUTSIDE RECORDS SUMMARY | 2016-09-24 08:50 | XMS REPORT ---
Author Author Albetr Ferrer Organization [employer] Address Unknown Phone Unavailable Care Team Providers Care Make Up Editor Name Role Phone Albert Ferrer CP Unavailable [...] End Date Status Dosage [facility] [address]-82 5-325 MG Orally every 6 hrs. take no other tylenol products or pain meds while on this. January 09, 2015 Apr 10, 2015 1 tablet as needed for pain Results No Known Results Summary Purpose [employer] Submission
--- OUTSIDE RECORDS SUMMARY | 2016-09-24 08:50 | XMS REPORT ---
Author Author Albert Ferrer Organization [employer] Address Unknown Phone Unavailable Care Team Providers Care Elevator Mechanic Apprentice Name Role Phone Albert Ferrer CP Unavailable [...]
--- OUTSIDE RECORDS SUMMARY | 2016-09-24 08:50 | XMS REPORT ---
Author Author Albert Ferrer Organization [employer] Address Unknown Phone Unavailable Care Team Providers Care Vp Analysis Name Role Phone Albert Ferrer CP Unavailable [...]
--- OUTSIDE RECORDS SUMMARY | 2016-09-24 08:50 | XMS REPORT ---
Author Author Albert Ferrer Organization [employer] Address Unknown Phone Unavailable Care Team Providers Care Supervisor [place] Name Role Phone Albert Ferrer CP Unavailable Allergies, Adverse Reactions, Alerts Substance Reaction Event Type N.K.D.A. Info Not Available Non Drug Allergy Problems Problem Type Condition ICD-9 Code Onset Dates Condition Status Problem Other specified idiopathic peripheral neuropathy 356.8 Active Problem Vision impairment, both eyes, impairment level not further specified 369.20 Active Problem Migraine headaches 346.90 Active Assessment Vision impairment, both eyes, impairment level not further specified 369.20 Active Assessment Other specified idiopathic peripheral neuropathy 356.8 Active Assessment Other optic neuritis 377.39 Active Assessment Migraine headaches 346.90 Active Medications Medication Code System Code Instructions Start Date End Date Status Dosage Tylenol [facility] [address]-34 325 MG Orally every 6 hrs 1 tablet as needed Multivitamins [facility] 24227-09096 1 Orally daily January 09, 2015 one [place] [facility] [address]-14 5-325 MG Orally every 6 hrs. take no other tylenol products or pain meds while on this. January 09, 2015 Feb 08, 2015 1 tablet as needed for pain Procedures Procedure Coding System Code Date OFFICE VISIT, EST-MOD. COMPLEXITY (25 MIN) CPT-4 99155 January 09, 2015 [facility] CPT-4 84570 January 09, 2015 [facility] visit Established Patient CPT-4 G0467 January 09, 2015 Vital Signs Date/Time: January 09, 2015 Height 68.5 in Weight 273.8 lbs Temperature 98.3 F Blood Pressure Diastolic 78 mm Hg Blood Pressure Systolic 126 mm Hg Cardiac Monitoring Heart Rate 81 /min BMI 41.02 Index Oximetry 98 % Respiratory Rate 16 /min Results No Known Results Summary Purpose [employer]Works Submission
--- OUTSIDE RECORDS SUMMARY | 2016-09-24 08:50 | XMS REPORT ---
Author Author Albert Ferrer Organization [employer] Address Unknown Phone Unavailable Care Team Providers Care Distance Learning Unit Leader Name Role Phone Albert Ferrer CP Unavailable [...] level not further specified 369.20 Active Assessment Unspecified optic neuritis 377.30 Active Assessment Headache 784.0 Active Medications Medication Code System Code Instructions Start Date End Date Status Dosage Multivitamins [facility] [address]015 1 Orally daily January 09, 2015 one [place] [facility] [address]-27 5-325 MG Orally every 6 hrs. take no other tylenol products or pain meds while on this. January 09, 2015 Feb 08, 2015 1 tablet as needed for pain Folic Acid [facility] [address]-19 1 MG Orally Once a day January 12, 2015 Jul 11, 2015 1 tablet Procedures Procedure Coding System Code Date OFFICE VISIT, EST-LOW COMPLEXITY (15 MIN.) CPT-4 57978 Jan 21, 2015 [facility] visit Established Patient CPT-4 G0467 Jan 21, 2015 Vital Signs Date/Time: Jan 21, 2015 Height 68.5 in Weight 274.4 lbs Temperature 98.5 F Blood Pressure Diastolic 86 mm Hg Blood Pressure Systolic 128 mm Hg Cardiac Monitoring Heart Rate 79 /min BMI 41.11 Index Oximetry 97 % Respiratory Rate 16 /min Results No Known Results Summary Purpose [employer]Works Submission
--- OUTSIDE RECORDS SUMMARY | 2016-09-24 08:50 | XMS REPORT ---
Author Author Gretchen Ruiz Organization [employer] Address Unknown Phone Unavailable Care Team Providers Care Production Team Member Name Role Phone Gretchen Ruiz CP Unavailable Allergies No Known Allergies Problems Problem Type Condition ICD-9 Code Onset Dates Condition Status Problem Other specified idiopathic peripheral neuropathy 356.8 Active Problem Vision impairment, both eyes, impairment level not further specified 369.20 Active Problem Migraine headaches 346.90 Active Medications No Known Medications Results No Known Results Summary Purpose [employer] Submission
--- OUTSIDE RECORDS SUMMARY | 2016-09-24 08:50 | XMS REPORT ---
Author Author Albert Ferrer Organization [employer] Address Unknown Phone Unavailable Care Team Providers Care Jig Filler Name Role Phone Albert Ferrer CP [...]
--- OUTSIDE RECORDS SUMMARY | 2016-09-24 08:50 | XMS REPORT ---
Author Author Albert Ferrer Organization [employer] Address Unknown Phone Unavailable Care Team Providers Care Card Tender Name Role Phone Albert Ferrer CP Unavailable Allergies No Known Allergies Problems Problem Type Condition ICD-9 Code Onset Dates Condition Status Problem Other specified idiopathic peripheral neuropathy 356.8 Active Problem Vision impairment, both eyes, impairment level not further specified 369.20 Active Problem Migraine headaches 346.90 Active Assessment Other optic neuritis 377.39 Active Assessment Vision impairment, both eyes, impairment level not further specified 369.20 Active Medications Medication Code System Code Instructions Start Date End Date Status Dosage Multivitamins [facility] 42776-28545 1 Orally daily January 09, 2015 one Tylenol [facility] [address]-14 325 MG Orally every 6 hrs 1 tablet as needed [place] [facility] [address]-43 5-325 MG Orally every 6 hrs. take no other tylenol products or pain meds while on this. January 09, 2015 Feb 08, 2015 1 tablet as needed for pain Procedures Procedure Coding System Code Date C-REACTIVE PROTEIN CPT-4 62076 January 09, 2015 VITAMIN B12 CPT-4 91649 January 09, 2015 SED RATE CPT-4 23497 January 09, 2015 IMMUNOELECTROPHORESIS, SERUM 6 CPT-4 54374 January 09, 2015 IMMUNOELECTROPHORESIS, SERUM 5 CPT-4 80066 January 09, 2015 FOLATE- VIT B12 AND FOLATE CPT-4 80181 January 09, 2015 IMMUNOELECTROPHORESIS, SERUM 2 CPT-4 54100 January 09, 2015 RPR CPT-4 51277 January 09, 2015 URINALYSIS WITH MICROSCOPIC CPT-4 32670 January 09, 2015 IMMUNOELECTROPHORESIS, SERUM 3 CPT-4 13150 January 09, 2015 MARISOL SCREEN CPT-4 61403 January 09, 2015 IMMUNOELECTROPHORESIS, SERUM 1 CPT-4 15467 January 09, 2015 IMMUNOELECTROPHORESIS, SERUM 4 CPT-4 22669 January 09, 2015 Results No Known Results Summary Purpose eClinicalWorks Submission
--- OUTSIDE RECORDS SUMMARY | 2016-09-24 08:50 | XMS REPORT ---
Author Author Albert Ferrer Organization [employer] Address Unknown Phone Unavailable Care Team Providers Care Remote Ruby On Rails Developer Name Role Phone Albert Ferrer CP [...]
--- OUTSIDE RECORDS SUMMARY | 2016-09-24 08:50 | XMS REPORT ---
Author Author Albert Ferrer Organization [employer] Address Unknown Phone Unavailable Care Team Providers Care Jewelry Engraver Name Role Phone Albert Ferrer CP Unavailable [...] Instructions Start Date End Date Status Dosage [facility] [address]-58 5-325 MG Orally every 6 hrs(May fill 03/14/16) Apr 13, 2016 1 tablet as needed Results No Known Results Summary Purpose eClinicalWorks Submission
--- OUTSIDE RECORDS SUMMARY | 2016-09-24 08:50 | XMS REPORT ---
Author Author Albert Ferrer Organization [employer] Address Unknown Phone Unavailable Care Team Providers Care Activities Counselor Name Role Phone Albert Ferrer CP Unavailable Allergies, Adverse Reactions, Alerts Substance Reaction Event Type N.K.D.A. Info Not Available Non Drug Allergy Problems Problem Type Condition ICD-9 Code Onset Dates Condition Status Assessment Vision impairment, both eyes, impairment level not further specified 369.20 Active Assessment Congenital macular change 743.55 Active Problem Vision impairment, both eyes, impairment level not further specified 369.20 Active Assessment Headache 784.0 Active Assessment Pupillary abnormalities 364.75 Active Medications Medication Code System Code Instructions Start Date End Date Status Dosage Tylenol [facility] [address]-32 325 MG Orally every 6 hrs 1 tablet as needed Procedures Procedure Coding System Code Date OFFICE VISIT, EST-MOD. COMPLEXITY (25 MIN) CPT-4 05261 January 08, 2015 [facility] visit Established Patient CPT-4 G0467 January 08, 2015 Vital Signs Date/Time: January 08, 2015 Height 68.5 in Pain Scale 8-9 1-10 Weight 274.8 lbs Temperature 98.3 F Blood Pressure Diastolic 76 mm Hg Blood Pressure Systolic 124 mm Hg Cardiac Monitoring Heart Rate 75 /min BMI 41.17 Index Oximetry 97 % Respiratory Rate 16 /min Results No Known Results Summary Purpose eClinicalWorks Submission
[2016-09-24] MEDS ORDERED: IBUP-1724 PO (09:02)
--- NOTE | 2016-09-24 09:06 | ERPDOC ---
Departure Disposition Decision Date: Sep 24, 2016 Disposition Decision Time: 10:26 Disposition: 01 DISCHARGED HOME, SELF-CARE Impression Impression Impression: Primary Impression: Chronic headache disorder Headache type: unspecified Intractability: not intractable Qualified Codes : R51 - Headache Severity: Moderate Condition: Improved Seen By: Physician only Referrals: JOSE COOK DO (Family) 2 Days Patient Instructions: Migraine Headache (GEN) Problems/Meds/Labs Reviewed?: Yes Medications reviewed and manag: Yes Follow up care ordered?: Yes Mental Status: Alert, Oriented Scripts Hydrocodone/Acetaminophen ([place] 7.5-325 Tablet) 7.5-325 Tablet 1 TAB PO Q4HR for 2 Days, #12 TAB 0 Refills Prov: ANTONIETA KINNEY DO 09/24/16 Ondansetron (Zofran Odt) 4 Mg Tab.rapdis 4 MG PO Q4HR Y for NAUSEA &/OR VOMITING for 2 Days, #12 TAB 0 Refills Prov: ANTONIETA KINNEY DO 09/24/16 HPI - General Medical General Chief Complaint: Headache Stated Complaint: MIGRAINE,VISION ISSUES Time Seen by Provider: 08:46 Source: patient, family Exam Limitations: no limitations HPI - General Medical Initial Comments 41-year-old male presents to the emergency department with the chief complaint of a headache. Patient's headache is generalized. Patient's headache is moderate in nature. It is a pounding sensation. There is no radiation. Patient does note improvement of his headache with his [place] tablets. Patient is using 5 mg [place] tablets at home. Patient denies any trauma or injury. No recent fever or illness. Patient has a long-standing history of headaches going back to 2008. Patient has been evaluated by neurology and ophthalmology for his headaches. Patient has had lumbar punctures and MRIs performed in the past as well and all were negative. This is a typical exacerbation of the patient's chronic pain. Patient was at home when his symptoms exacerbated. Symptoms have been persistent in nature since onset. He denies any other complaints or associated symptoms. Patient has had chronic loss of vision dating back to 2008 and this is at baseline and unchanged. This is not a new process. Occurred At: home Onset: Gradual Allergies: Coded Allergies: No Known Allergies (Unverified , 02/21/15) Past History Patient Medical History Problem List Updates: Chronic Headache, Vision Impairment Past Medical History Pt denies signifigant PMH Surgical History Denies Surgeries Family History Family History: Negative Vaccines Hx Influenza Vaccination: No Hx Pneumococcal Vaccination: No Hx Tetanus Diptheria: Yes (2011) Hx Tetanus, Diptheria, Pertuss: Yes (2011) Social History Smoking Status: Current every day smoker Substance Use Type: does not use Alcohol Intake: none Review of Systems Constitutional Constitutional: DENIES: chills, fever Eyes General: DENIES: erythema, exudate Lids/Accessories: DENIES: erythema, swelling Vision: DENIES: acuity, blurring ENMT Ears: DENIES: drainage, erythema Hearing: DENIES: hearing loss Balance: DENIES: ataxia, falling to one side Sinuses: DENIES: congestion, pain Nose: DENIES: nosebleeds, pain Mouth/Throat: DENIES: painful swallowing, sore throat Teeth: DENIES: pain Jaw: DENIES: pain Cardiovascular Cardiac: DENIES: chest pain, dyspnea on exertion Rhythm/Rate: DENIES: irregular beat, palpitations Vascular: DENIES: pedal edema, unilateral swelling Pulmonary Respiratory: DENIES: cough, dyspnea, pleuritic chest pain, sputum GI Upper Abdomen: nausea, DENIES: pain, vomiting Lower Abdomen: DENIES: diarrhea, pain Musculoskeletal General: DENIES: joint pain, tenderness Integumentary Skin: DENIES: itching, rash Neurological General: headache (typical), DENIES: numbness, weakness Psychiatric Psychiatric: DENIES: emotional instability, suicidal ideation/attempt Endocrine Endocrine: DENIES: polydipsia, polyphagia Hematologic/Lymphatic Hematologic/Lymphatic: DENIES: frequent nosebleeds, lymphadenopathy Allergic/Immunological Allergic/Immunoligical: DENIES: allergic reactions, hives Physical Exam General General Nourishment: well nourished, well developed, appears stated age, no acute distress, adult General Body Habitus: well groomed Vitals and Pain First Documented Vital Signs Date Time Temp Pulse Resp B/P Pulse Ox O2 Delivery O2 Flow Rate FiO2 09/24/16 08:45 98.4 85 20 153/103 98 Room Air Weight: Kilograms: 126.500 Height (feet): 5 Height (inches): 11.00 Triage Pain Scale: RN VS reviewed by Provider: Yes Normal Exams: Head: Normocephalic w/o trauma Eyes: Pupils are PERRLA w/ EOMI, No scleral icterus, irritation, or foreign bodies noted ENMT: No facial trauma, nasal exudates, pharyngeal erythema, or exudates are noted Dental: No fractured, loose, or missing teeth noted Neck: Full range of motion, without adenopathy, JVD, bruits or thyromegaly Chest/Resp: Clear all javed, with good airflow, and symmetry bilaterally CV: Regular rate and rhythm, without murmur or gallop, Pulses 2+ all extremities, capillary refill, <2 seconds all ext., no pedal edema noted Abdomen: Bowel sounds positive, soft, non-tender, non-distended, no hepatosplenomegaly, masses or bruits noted Lymphatic: No lymphadenopathy, or lymphedema noted Musculoskeletal: No tenderness, or deformity noted, good range of motion, all extremities Integumentary: No rashes, hives, or bruising noted, hair and nails, without abnormality Neurologic: Patient is alert, and oriented, cranial nerves, motor/sensory/ cerebellar, exams w/o gross deficits, to observation Psychiatric: Patient exhibits, appropriate attention, emotion and affect Neurologic (brief) Comments Alert and oriented x 4. CN 2-12 intact. Normal sensation. Normal strength. Normal motor. Normal speech. Normal gait. Absent Babinski bilaterally. Reflexes 2/4 in all extremities. No focal neurologic deficit. Normal coordination. Differential Diagnoses Considering: Other (chronic pain/migraine headache/tension headache/headache) Progress Results/Orders Orders Procedure Category Date Status Time Ct Head W/O Contrast CT 09/24/16 Taken 09:01 Iv Lock (Ed Only) EDM 09/24/16 Transmitted 09:01 Normal Saline (Normal PHA 09/24/16 Complete Saline Iv) 09:15 Metoclopramide PHA 09/24/16 Complete (Reglan Inj) 09:15 Hydromorphone PHA 09/24/16 Complete (Dilaudid) 10:00 Medications Current ED Medications Sodium Chloride (Normal Saline IV) 1,000 ml @ 999 mls/hr Q1H1M ONCE IV Last administered on 09/24/16 09:16; Start 09/24/16 at 09:15; Stop 09/24/16 at 10:15; Status DC Metoclopramide HCl (REGLAN Inj) 10 mg O ONCE IV Last administered on 09/24/16 09:16; Start 09/24/16 at 09:15; Stop 09/24/16 at 09:16; Status DC Hydromorphone HCl (Dilaudid) 1 mg O ONCE IV Last administered on 09/24/16t 10: 11; Start 09/24/16 at 10:00; Stop 09/24/16 at 10:01; Status DC Progress Progress Imaging is discussed in detail with the patient and questions are answered. Patient is given IV hydration. Patient is given Reglan 10 mg IV times one. Patient is still having discomfort after administration of the Reglan so Dilaudid 1 mg IV 1 is administered. Patient states that he has had approximately a 50% reduction in pain and requests to be discharged home. Patient is discharged home at this time in improved condition. He is to follow up as instructed. Patient states that his chronic pain has returned to baseline. Patient is to follow up as instructed. He is to return to the emergency department if his condition worsens or changes in any manner. He is in agreement with the current plan of management. Prescription for [place] was provided. CT CT : CT: Head no contrast Interpretation: Normal, Faxed Report ANTONIETA KINNEY DO Sep 24, 2016 09:06 ANTONIETA KINNEY DO Sep 24, 2016 09:06
[2016-09-24] MEDS ORDERED: METOCLOPRAMIDE 10mg/2ml INJECTION IV ONE (09:15)
[2016-09-24] MEDS ORDERED: NORMAL SALINE 1,000 ML IV ONE (09:15)
--- NOTE | 2016-09-24 09:18 | NUR ---
MEDICATION IVF INFUSING AND REGLAN 10MG IVP ADMINISTERED
--- NOTE | 2016-09-24 09:20 | NUR ---
RADIOLOGY PT TO RADIOLOGY PER WC
--- NOTE | 2016-09-24 09:28 | NUR ---
RADIOLOGY PT FROM RADIOLOGY PER WC
--- OUTSIDE RECORDS SUMMARY | 2016-09-24 09:30 | XMS REPORT | Continuity of Care Document ---
Author Author [facility] Organization [facility] Address Unknown Phone Unavailable Support Name Relationship Address Phone RENATO ROOT DO Caregiver [facility] [address] [place], [place] [id number] ACACIA CONTE MD Caregiver [facility] [address] [place] [address] RY MOREIRA Next Of Kin [address] [place] [address] Care Team Providers Care Boat Hand Name Role Phone ACACIA CONTE MD Primary Care Physician [phone] Insurance Providers Payer Name Policy Number Subscriber Name Relationship Medicare [id number] Susy Jenkins 20 Self [facility] Plan [id number] Susy Jenknis 20 Self Problems Medical Problems Problem Onset [...] F (96.8 - 99.1) Temperature (Calculated Celsius) 36.92727 degrees C (36.0 - 37.3) Pulse Rate [...] Has specimen been collected/obtained? Y Urine Specific [place] September 18, 2013 10:15pm 1.015 - Has [...] Encounters Encounter Location Date/Time Registered Emergency Room [facility] 04/22/14 12:23pm Recent Diagnosis
[2016-09-24] MEDS ORDERED: HYDROMORPHONE 2mg/ml INJECTION IV ONE (10:00)
--- NOTE | 2016-09-24 10:16 | NUR ---
MEDICATION DILAUDID 1MG IVP ADMINISTERED
[2016-09-24] MEDS ORDERED: HYDR-347 PO (10:29)
[2016-09-24] MEDS ORDERED: ONDA4TAB7 PO (10:29)
[2016-09-24 10:37] VITALS: BP 132/88; PULSE 78; RESP 16; TEMP 98.4; O2SAT 95
--- NOTE | 2016-09-24 10:37 | NUR ---
DISCHARGE WRITTEN INSTRUCTIONS WITH [facility] AND [facility] REVIEWED AND SENT WITH PT. PT VERBALIZES UNDERSTANDING OF DI AND MEDICATIONS, DENIES QUESTIONS. PT AMBULATES OUT OF ER WITH STEADY GAIT ACCOMP BY TROUBLE OPERATOR AT THIS TIME.
--- NOTE | 2016-09-25 09:21 | DI ---
Indication: ITS.REASON: Headache PROCEDURE: CT HEAD W/O CONTRAST: Encounter: Initial Comparison: January 02, 2015 Technique: Axial CT images through the head were performed without contrast. Iterative Reconstruction dose reducing technique was utilized. FINDINGS: The ventricles are of normal size, shape, and configuration for the patient's age. There is no evidence of acute intracranial hemorrhage, midline displacement, or mass effect. The CT attenuation of the brain parenchyma is normal within the cerebellum, brain stem, and cerebral hemispheres. The tympanic cavities and mastoid air cells are free of appreciable disease. There are no definite fractures of the skull base, calvarium, or visualized portion of the midface. IMPRESSION: No CT evidence of acute intracranial abnormality. There is a preliminary report by [facility]. .
== END 2016-09-24 10:37 | disposition home or self-care (01) ==
LOC: ED 08:44
DX: R51 Headache (principal)
CPT/HCPCS: 70450; 96361; 96374; 96375; 99284; J1170; J2765; J7030